=== PATIENT | male | born 1980 | race Caucasian/White ===

== ENCOUNTER 2023-06-28 15:13 | Outpatient (CLI) | payer BC, SELFPAY ==
[2023-06-28 15:47] LABS: CRP < 0.5 mg/dL (<1.0)
[2023-07-01 03:38] LABS: Immunoglobulin A 160 mg/dL (47-310); TTG IGA AB <1.0 U/mL
== END 2023-06-28 15:14 | disposition home or self-care (01) ==
LOC: ANHLAB 15:15
PROVIDERS: PCP Nurse Practitioner Adult Health; Visit Provider Nurse Practitioner Family
DX: R19.7 Diarrhea, unspecified (principal)
CPT/HCPCS: 36415; 82784; 86140; 86364

== ENCOUNTER 2023-06-29 14:54 | Outpatient (CLI) | payer BC, SELFPAY ==
--- NOTE | ~2023-06-29 | CT_ITS ---
EXAMINATION: CT abdomen pelvis w con DATE: 06/29/2023 15:35 INDICATION: Abdominal pain TECHNIQUE: Computed tomography (CT) of the abdomen and pelvis was performed with 100 mL Omnipaque-350 intravenous contrast. Automated exposure control and iterative reconstruction technique were employe d. The dose-length product was 1619.44 mGy-cm. COMPARISON: 08/19/2016 FINDINGS: Lung bases are clear. Heart size is normal. No pericardial or pleural effusion. Diffuse hepatic steat osis with focal sparing along the gallbladder fossa. Gallbladder, spleen, pancreas, bilateral adrenal glands are normal. Small bilateral renal cysts the largest measuring 1.3 cm at the left kidney. Ther e are few punctate densities at both kidneys suspicious for nephrolithiasis, the most convincing at t he upper pole the left kidney measuring 1-2 mm . Specificities decreased by the presence of intraveno us contrast. There is mild colonic diverticulosis with a sigmoid predominance. There is no adjacent i nflammatory change to suggest diverticulitis. Small bowel and appendix are normal. Small fat-contain ing umbilical hernia. Bladder is normal. No free intraperitoneal gas or fluid. No pathologically enla rged abdominal or pelvic lymphadenopathy. Moderate thoracic and mild lumbar spondylosis. IMPRESSION: 1. No acute intra-abdominal/pelvic process. 2. Diffuse hepatic steatosis. 3. Mild colonic diverticulosis. 4. Suggestion of punctate nephrolithiasis although specificity is decreased by the small size of the suspected stones and the presence of intravenous contrast. Reviewed, dictated and finalized at location A. IMPRESSION: 1. No acute intra-abdominal/pelvic process. 2. Diffuse hepatic steatosis. 3. Mild colonic diverticulosis. 4. Suggestion of punctate nephrolithiasis although specificity is decreased by the small size of the suspected stones and the presence of intravenous contrast .
[2023-06-29 15:27] LABS: Estimated Glomerular Filt Rate > 60
[2023-07-07 19:23] LABS: Pancreatic Elastase, Stool >500 mcg/g
[2023-07-08 01:59] LABS: Calprotectin, Stool 14 mcg/g
== END 2023-06-29 14:55 | disposition home or self-care (01) ==
PROVIDERS: PCP Nurse Practitioner Adult Health; Visit Provider Nurse Practitioner Family
DX: R19.7 Diarrhea, unspecified (principal); K52.9 Noninfective gastroenteritis and colitis, unspecified; R10.9 Unspecified abdominal pain; K76.0 Fatty (change of) liver, not elsewhere classified; K57.90 Diverticulosis of intestine, part unspecified, without perforation or abscess without bleeding
CPT/HCPCS: 74177; 82653; 83993; Q9967